=== PATIENT | female | born 1990 | race Caucasian/White ===

== ENCOUNTER 2019-02-14 10:38 | Emergency (ER) | payer OTHER ==
[~2019-02-14] VITALS: Ht 170.2 cm; Wt 48.1 kg
[2019-02-14 10:42] VITALS: BP 101/77
[2019-02-14] MEDS ORDERED: CEPHALEXIN MONOHYDRATE 500 MG CAPSULE PO ONE ×2 (10:57→11:00)
== END 2019-02-14 11:04 | disposition home or self-care (01) ==
LOC: ER 10:52
DX: L03.032 Cellulitis of left toe (principal)